=== PATIENT | female | born 1955 | race Caucasian/White ===

== ENCOUNTER → 2016-12-28 | Outpatient (CLI) | payer BC ==
[~2016-12-28] MED LIST: MEDROL PO; PERCOCET5/325 PO; SKELAXIN PO
--- NOTE | ~2016-12-28 | MY29 ---
[facility] A Service of [facility] / [facility] RADIOLOGY TEXT RESULTS PATIENT: FABIAN HEIN LOCATION: [facility] : 59 UNIT #: [id number] AGE: [address]: Britton Regalado MD SEX: F ORDER DR: [id number] [facility] [address] [place], [place] [address] [id number] O MR#: [id number] Acc #: [id number] NAME: FABIAN HEIN : 1955 SEX: F STUDY DATE/TIME: 12/28/2016 8:41 UNIT: [facility] ROOM: STUDY DESCRIPTION: MY CLARE SCREENING W/ CAD BILAT Attending Physician: Britton Regalado M.D. Referring Physician: Britton Regalado M.D. Ordering Physician: Britton Regalado M.D. Primary Care Physician: Britton Regalado M.D. MEDICAL IMAGING REPORT This report is preliminary unless electronic signature is present EXAM Digital screening mammogram 12/28/2016 HISTORY 60-year-old woman no risk elevation. Annual screen. COMPARISON Mammograms date to 03/23/2005 with most recent 12/19/2015. FINDINGS Digital imaging of each breast was completed utilizing screening protocol. Review includes FDA-approved CAD device. Breast parenchyma is partially fatty replaced and mildly heterogeneous with a stable pattern. I see no suspicious mass characteristics. There are no interval occurring microcalcifications and no architectural deformity. IMPRESSION Negative mammogram. Annual screening recommended. Patients over the age of 40 are entered into a reminder system with target due date for the next mammogram. A result letter will also be sent to the patient. BIRADS: 1 Negative Dictated by... Eyad Nguyen M.D. THIS IS AN ELECTRONICALLY VERIFIED REPORT Eyad Nguyen M.D. at 12/28/2016 12:01 PM HANY/sumit [facility] A Service of [facility] RADIOLOGY TEXT RESULTS PATIENT: FABIAN HEIN LOCATION: [facility] : 59 UNIT #: [id number] AGE: [address]: Britton Regalado MD SEX: F ORDER DR: TD: 12/28/2016 10:40 JOB #: [id number] MEDICAL IMAGING REPORT Page 1 of 1 COPY
== END | disposition home or self-care (01) ==
LOC: CWCC 08:21
DX: Z12.31 Encounter for screening mammogram for malignant neoplasm of breast (principal)
CPT/HCPCS: G0202